=== PATIENT | male | born 1995 | race Caucasian/White ===

== ENCOUNTER 2017-05-08 17:31 | Emergency (ER) | payer OTHER ==
[~2017-05-08] VITALS: Ht 175.3 cm; Wt 78.2 kg
[2017-05-08 17:41] VITALS: BP 143/71; PULSE 77; RESP 16; TEMP 98.3; O2SAT 97
--- NOTE | 2017-05-08 18:08 | RADRPT ---
EXAM DATE/TIME: 05/08/2017 17:54 [place] COMPARISON: No previous studies available for comparison. INDICATIONS : Right hand, fifth metacarpal pain and swelling. MEDICAL HISTORY : None. SURGICAL HISTORY : Appendectomy. ENCOUNTER: Initial ACUITY: 1 week PAIN SCORE: 8/10 LOCATION: Right upper extremity FINDINGS: AP, lateral and oblique views of right hand were obtained and demonstrate a mildly comminuted fractur e involving the fifth metacarpal head and neck. There is volar angulation of the distal fracture frag ment but no displacement. There is overlying soft tissue swelling. There are no other bony abnormalit ies. CONCLUSION: Boxer's type fracture involving the fifth metacarpal head and neck. Abe George MD on May 08, 2017 at 18:06 Board Certified Radiologist. This report was verified electronically.
--- NOTE | 2017-05-08 18:45 | PD ---
HPI Chief Complaint: Musculoskeletal Complaint Time Seen by Provider: 17:51 Travel History International Travel<30 days: No Contact w/Intl Traveler<30days: No Traveled to known affect area: No History of Present Illness HPI 22-year-old male here for evaluation of right hand pain. Patient injured the hand 7 days ago when he punched a wall. He has pain over the dorsal aspect of hand. Worse with flexion and extension of the fingers. Relieved with rest. Denies paresthesia or weakness in the extremity. Symptom severity is moderate. PFSH Past Medical History Medical History: Denies Significant Hx Asthma: Yes ( A CHILD) Diminished Hearing: No Immunizations Current: Yes Tetanus Vaccination: < 5 Years Past Surgical History Appendectomy: Yes Social History Alcohol Use: Yes (SOC) Tobacco Use: No Substance Use: No Allergies-Medications (Allergen,Severity, Reaction): Coded Allergies: No Known Allergies (Unverified Adverse Reaction, Unknown, 05/08/17) Reported Meds & Prescriptions Reported Meds & Active Scripts Active No Active Prescriptions or Reported Medications Review of Systems Except as stated in HPI: all other systems reviewed are Neg Physical Exam Narrative GENERAL: Alert male. Well-appearing. SKIN: Warm and dry. HEAD: Normocephalic. EYES: No injection or drainage. NECK: Supple, trachea midline. No JVD or lymphadenopathy. MUSCULOSKELETAL: No cyanosis, or edema. Right upper extremity: Noticeable swelling and tenderness to the dorsum of the right hand. No deformity. Patient is able to fully flex and extend all fingers. Able to make a complete fist. Normal sensation in all fingers. Brisk cap refill. Data Data Last Documented VS Vital Signs Date Time Temp Pulse Resp B/P (MAP) Pulse Ox O2 Delivery O2 Flow Rate FiO2 05/08/17 17:41 98.3 77 16 143/71 (95) 97 Orders Orders Hand, Complete ([id number]) (05/08/17 ) Splint Or Brace Apply/Monitor (05/08/17 18:35) MDM Medical Decision Making Medical Screen Exam Complete: Yes Emergency Medical Condition: Yes Differential Diagnosis Metacarpal fracture, contusion, finger dislocation Narrative Course 22-year-old male here with right hand pain after punching a wall several days ago. X-ray reveal a boxer's fracture of the right fifth metatarsal. Patient be splinted and ulnar gutter splint and struck her to follow up with hand surgeon. Diagnosis Primary Impression: Boxers fracture Qualified Codes: S62.339A - Displaced fracture of neck of unspecified metacarpal bone, initial encounter for closed fracture Referrals: Wellington Rodriguez III, MD Hand Surgeon Additional Instructions: Keep the splint in place until follow-up with hand surgeon. Take [id number] Tylenol or ibuprofen as needed for pain. Scripts No Active Prescriptions or Reported Meds Disposition: 01 DISCHARGE HOME Condition: Stable Odilia Morrow May 08, 2017 18:45
== END 2017-05-08 19:21 | disposition home or self-care (01) ==
LOC: PHEFT 17:31
DX: S62.336A Displaced fracture of neck of fifth metacarpal bone, right hand, initial encounter for closed fracture (principal); W22.09XA Striking against other stationary object, initial encounter
CPT/HCPCS: 29125; 73130